=== PATIENT | male | born 1970 | race Caucasian/White ===

== ENCOUNTER 2025-02-10 10:22 | Outpatient (OUT) | payer BC, SELFPAY ==
[2025-02-10 11:00] LABS: Basophils Percent Auto 0.5 % (0.2-2.0); Eosinophils Absolute Auto 0.2 10^3/uL (0.0-0.7); Hematocrit 47.2 % (42.0-54.0); Immature Granulocytes Abs Auto 0.02 10^3/uL (0.00-0.03); Immature Granulocytes Pct Auto 0.3 % (0.0-0.5); Lymphocytes Absolute Auto 1.7 10^3/uL (1.2-3.8); Lymphocytes Percent Auto 26.4 % (20.5-60.0); Mean Corpuscular HGB Conc 33.9 g/dL (29.9-35.2); Mean Corpuscular Hemoglobin 30.8 pg (25.9-34.0); Mean Corpuscular Volume 90.8 fL (80.0-94.0); Mean Platelet Volume 9.5 fL (9.5-13.5); Monocytes Absolute Auto 0.5 10^3/uL (0.3-0.8); Monocytes Percent Auto 8.1 % (1.7-12.0); Neutrophils Percent Auto 61.7 % (43.0-75.0); Platelet Count 262 10^3/uL (150-450); Red Cell Distribution Width 12.3 % (11.0-15.0); White Blood Count 6.4 10^3/uL (4.0-11.0)
[2025-02-10 11:41] LABS: Estimated Average Glucose 111 mg/dL; Glycohemoglobin A1C 5.5 % (4.5-6.2)
[2025-02-10 11:43] LABS: Prostate Specific Antigen Scrn 0.78 ng/mL (<=4.00)
[2025-02-10 11:57] LABS: Alanine Aminotransferase 34 U/L (16-63); Albumin Globulin Ratio 1.2; Alkaline Phosphatase 71 U/L (46-116); Anion Gap 10.5; Aspartate Amino Transferase 29 U/L (15-37); BUN Creatinine Ratio 16.7; Bilirubin Total 0.6 mg/dL (0.2-1.0); Calcium 9.1 mg/dL (8.5-10.1); Carbon Dioxide 29.5 mmol/L (21.0-32.0); Chloride 107 mmol/L (98-107); Chol HDL Ratio 2.7; Cholesterol 118 mg/dL (<=200); Estimated GFR (African America >60 (>=60 mL/min/1.73m^2); Estimated GFR (Non-African Ame >60 (>=60 mL/min/1.73m^2); Globulin 3.3 g/dL; Glucose 97 mg/dL (74-106); HDL Cholesterol 44 mg/dL (40-60); Sodium 143 mmol/L (136-145); TSH W/ REFLEX FT4 1.595 uIU/mL (0.358-3.740); Total Protein 7.3 g/dL (6.4-8.2); Triglycerides 80 mg/dL (<=150)
== END 2025-02-10 10:23 | disposition home or self-care (01) ==
LOC: LAB 10:28
PROVIDERS: PCP Physician Assistant; Visit Provider Physician Assistant
DX: E78.2 Mixed hyperlipidemia (principal); R73.01 Impaired fasting glucose; R94.5 Abnormal results of liver function studies; Z12.5 Encounter for screening for malignant neoplasm of prostate; E55.9 Vitamin D deficiency, unspecified; E03.9 Hypothyroidism, unspecified
CPT/HCPCS: 36415; 80053; 80061; 82306; 83036; 84443; 85025; G0103